=== PATIENT | female | born 1970 | race Caucasian/White ===

== ENCOUNTER 2017-05-29 17:36 | Emergency (ER) | payer MEDICAID ==
[~2017-05-29] VITALS: Ht 162.6 cm; Wt 74.8 kg
[2017-05-29 17:44] VITALS: BP 159/109
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
[2017-05-29] MEDS ORDERED: Norco 5mg/325mg tab PO ONE (18:00)
[2017-05-29] MEDS ORDERED: Ketorolac 30mg Inj IM ONE (18:00)
[2017-05-29 19:30] VITALS: BP 148/88
[2017-05-29] MEDS ORDERED: ROBAXIN500 MG PO (20:02)
[2017-05-29] MEDS ORDERED: IBUPROFEN800 MG ORAL (20:02)
[2017-05-29 20:25] VITALS: BP 148/88
--- NOTE | 2017-05-30 12:22 | Diagnostic Imaging Report ---
Indication: Pain as post trauma Technique: CT cervical spine was performed utilizing automated exposure control without intravenous contrast material. Axial, sagittal and coronal images were generated. CT dose (combined CT cervical spine, thoracic spine, lumbar spine): Total DLP 3725.14 mGycm; CTDI vol 25.77,67.04,40.24 mGy Comparison: None Findings: There is straightening of the cervical lordosis which may be related to positioning or muscle spasm. There is slight levocurvature of the lower cervical spine, possibly related to positioning. No acute fracture is identified. Anterior and lateral atlantodental intervals are within normal limits. No bony central canal stenosis. No appreciable bony foraminal narrowing. There are mild degenerative changes of the cervical spine with small osteophytes at C5-C6. Imaged portions of the posterior fossa are grossly unremarkable. No prevertebral soft tissue abnormality or collection is identified. Thyroid is unremarkable in appearance. Imaged left lung apex unremarkable. Mastoid air cells and imaged portions of the paranasal sinuses clear. IMPRESSION: No evidence of acute fracture. Straightening of the cervical lordosis may be related to positioning or muscle spasm. Mild degenerative change of the cervical spine. Discs and cord are better evaluated on MRI, which can be obtained for better evaluation as clinically indicated. This corresponds with the statrad preliminary report. The CT scanner at [facility] is accredited by the [employer] and the scans are performed using protocols designed to limit radiation exposure to as low as reasonably achievable to attain images of sufficient resolution adequate for diagnostic evaluation.
--- NOTE | 2017-05-30 12:28 | Diagnostic Imaging Report ---
Indication: Pain as post trauma Technique: CT of the thoracic spine was performed utilizing automated exposure control without intravenous contrast material. Axial, sagittal and coronal images were generated. CT dose (combined CT cervical spine, thoracic spine, lumbar spine): Total DLP 3725.14 mGycm; CTDI vol 25.77,67.04,40.24 mGy Comparison: None Findings: Mild levocurvature of the thoracic spine noted. Thoracic kyphosis is maintained. No evidence of acute fracture. There are mild multilevel degenerative changes manifested by anterior osteophyte formation. No bony central canal stenosis. No appreciable bony foraminal narrowing. No focal paraspinal soft tissue abnormality is appreciated. Thoracic and abdominal aorta normal in caliber. No focal kidney lesion is appreciated. Dependent atelectatic changes noted in the lungs. IMPRESSION: No evidence of acute fracture or traumatic malalignment. Mild multilevel degenerative changes. This corresponds with the statrad preliminary report. The CT scanner at [facility] is accredited by the [employer] and the scans are performed using protocols designed to limit radiation exposure to as low as reasonably achievable to attain images of sufficient resolution adequate for diagnostic evaluation.
--- NOTE | 2017-05-30 12:42 | Diagnostic Imaging Report ---
Indication: Pain post trauma Technique: CT of the lumbar spine was performed utilizing automated exposure control without intravenous contrast material. Axial, sagittal and coronal images were generated. CT dose (combined CT cervical spine, thoracic spine, lumbar spine): Total DLP 3725.14 mGycm; CTDI vol 25.77,67.04,40.24 mGy Comparison: None Findings: There are 5 nonrib-bearing lumbar-type vertebral bodies. There is grade 1 anterolisthesis of L5 on S1. Bilateral spondylolysis is noted at this level, which appears chronic. No definite acute fracture is identified. There are degenerative changes with probable multilevel small disc bulges. There is a moderate to large disc bulge at L5-S1 where there is vacuum disc phenomenon. There is mild central canal stenosis at this level and probable bilateral foraminal narrowing. These findings would be better assessed on MRI. No renal lesions appreciated. Abdominal aorta and iliac arteries normal caliber. Bladder appears distended but is partially visualized. IMPRESSION: No definite acute lumbar spine fracture identified. Grade 1 anterolisthesis of L5 on S1. Bilateral spondylolysis noted at this level which is likely chronic. Broad-based disc bulge at L5-S1 with suspicion of bilateral foraminal narrowing. These findings would be better evaluated on MRI, which is recommended as clinically indicated. Possibly distended urinary bladder, partially visualized. This corresponds with the statrad preliminary report. The CT scanner at [facility] is accredited by the [employer] and the scans are performed using protocols designed to limit radiation exposure to as low as reasonably achievable to attain images of sufficient resolution adequate for diagnostic evaluation.
== END 2017-05-29 19:25 | disposition home or self-care (01) ==
LOC: EDBD 17:36 → EMR 17:40
DX: M48.07 Spinal stenosis, lumbosacral region (principal); M54.2 Cervicalgia; V43.52XA Car driver injured in collision with other type car in traffic accident, initial encounter; Y93.9 Activity, unspecified; Y92.410 Unspecified street and highway as the place of occurrence of the external cause; R20.0 Anesthesia of skin; M47.897 Other spondylosis, lumbosacral region
CPT/HCPCS: 72125; 72128; 72131; 96372; 99284; J1885